=== PATIENT | male | born 1975 | race Two or more races ===

== ENCOUNTER 2022-01-07 22:19 | Inpatient (IN) | payer SELFPAY ==
[~2022-01-07] VITALS: Ht 167.6 cm; Wt 109.0 kg
[~2022-01-07 22:19] MED LIST: CITA40TA6 PO; FOLI1TAB16 PO; GLIM4TAB8 PO; LISI5TAB15 PO; METF-658 PO; SIMV40TA18 PO; SULF1TAB24 PO; TRAZ-123 PO
[2022-01-07] MEDS ORDERED: ONDANSETRON PF 4 MG/2 ML VIAL. IVP ONE (22:45)
[2022-01-07] MEDS ORDERED: IV NORMAL SALINE 1000ML BAG 1,000 ML IV SCH (22:45)
--- NOTE | 2022-01-07 22:55 | RAD ---
XR CHEST 1V INDICATION: Dyspnea. COMPARISON STUDY: None. FINDINGS: Lungs: Low volume. Mild bilateral perihilar opacities. Pleura: No pleural effusion or pneumothorax. Heart and Mediastinum: The cardiomediastinal silhouette is normal. The great vessels of the thorax ar e normal. Bones and Soft Tissues: The bones and soft tissues are within normal limits. IMPRESSION: Low lung volume with mild perihilar opacities, probably subsegmental atelectasis although infection c ould have a similar appearance. Electronically signed by: Arturo Garibay MD (01/07/2022 10:52 PM) [facility]
[2022-01-07] MEDS ORDERED: MULTIVIT INFUSN,ADULT 4,VIT K 10 ML, THIAMINE INJ 100 MG, FOLIC ACID INJ 1 MG in IV NOR... IV SCH (23:00)
[2022-01-07] MEDS ORDERED: MULTIVIT INFUSN,ADULT 4,VIT K 10 ML, THIAMINE INJ 100 MG, FOLIC ACID INJ 1 MG in IV NOR... IV ONE (23:00)
[2022-01-07 23:09] LABS: BASO # 0.1 x10^3/uL (0.0-0.2); BASO % 1 % (0-3); EOS % 0 % (0-3); HEMATOCRIT 43.3 % (39.0-53.0); HEMOGLOBIN 15.1 g/dL (13.0-17.5); LYMPH # 1.9 x10^3/uL (1.0-4.8); LYMPH % 31 % (24-48); MEAN CORPUSCULAR HEMOGLOBIN 31 pg (25-35); MEAN CORPUSCULAR HGB CONC 35 g/dL (31-37); MEAN CORPUSCULAR VOLUME 88 fL (79-100); MONO # 0.5 x10^3/uL (0.0-1.1); MONO % 8 % (0-9); NEUT # 3.6 x10^3/uL (1.8-7.7); NEUT % 60 % (31-73); PLATELET COUNT 195 x10^3/uL (140-400); RED BLOOD COUNT 4.94 x10^6/uL (4.30-5.70)
--- NOTE | 2022-01-07 23:10 | PHYS DOC ---
Past Medical History Past Medical History: Anxiety, Diabetes-Type II, High Cholesterol, Hypertension, Other Additional Past Medical Histor: ETOH ABUSE Past Surgical History: Other Additional Past Surgical Histo: Lower back disc surgery. Smoking Status: Current Every Day Smoker Alcohol Use: Heavy Drug Use: None Adult General Chief Complaint Chief Complaint: ALCOHOL INTOXICATION HPI HPI Patient is a 46 year old male who presents after drinking alcohol tonight. Patient is extremely agitated and states that he has been hallucinating. He has recently been through alcohol detox and fell off the wagon couple of days ago he says. He denies any recent trauma. Patient states he is very anxious and keeps seeing people that do not exist. He is requesting help at this time. He denies any fever, chest pain or abdominal pain. He does feel nauseated. Review of Systems Review of Systems Review of systems unobtainable secondary to patient's intoxication Current Medications Current Medications Current Medications Medications (Trade) Dose Ordered Sig/Vianney Start Time Stop Time Status Last Admin Dose Admin Lorazepam (Ativan Inj) 2 mg STK-MED ONCE 01/08/22 03:10 01/08/22 03:11 DC Multivitamins 10 ml/Thiamine HCl 100 mg/Folic Acid 1 mg/Sodium Chloride 1,011.2 ml @ 1,000 mls/ hr ONCE ONCE 01/07/22 23:00 01/08/22 00:00 DC 01/07/22 23:03 1,000 MLS/HR Ondansetron HCl (Zofran) 4 mg 1X ONCE 01/08/22 03:00 01/08/22 03:01 DC 01/08/22 02:55 4 MG Sodium Chloride 1,000 ml @ 1,000 mls/hr 1X ONCE 01/08/22 01:15 01/08/22 02:14 DC 01/08/22 01:39 1,000 MLS/HR Allergies Allergies Allergies Coded Allergies Type Severity Reaction Last Updated Verified hydrocodone Allergy Intermediate Rash. 05/30/15 Yes Physical Exam Physical Exam Constitutional: Well developed, well nourished male, nontoxic in appearance but quite anxious. HENT: Normocephalic, atraumatic, bilateral external ears normal, mucosa dry, nose normal. Eyes: EOMI, conjunctiva mildly injected bilaterally, no discharge. Neck: Normal range of motion, supple, no stridor, no meningeal signs. Cardiovascular: Tachycardic with a rate of 130 or so on initial arrival, regular rhythm Lungs & Thorax: Bilateral breath sounds clear to auscultation Abdomen: Soft, no tenderness or obvious masses Skin: Warm, dry, no erythema, no rash. Extremities: No tenderness, no cyanosis, no clubbing, ROM intact, no edema. Neurologic: Alert, normal motor function, normal sensory function, no focal deficits noted. Psychologic: Patient is agitated and anxious Current Patient Data Vital Signs Vital Signs Date Time Temp Pulse Resp B/P (MAP) Pulse Ox O2 Delivery O2 Flow Rate FiO2 01/07/22 23:58 106 22 149/85 (106) 98 Nasal Cannula 1.0 01/07/22 22:19 98.0 98.0 Lab Values Laboratory Tests Test 01/07/22 22:45 01/07/22 23:50 01/08/22 00:05 01/08/22 02:34 White Blood Count 6.0 x10^3/uL (4.0-11.0) Red Blood Count 4.94 x10^6/uL (4.30-5.70) Hemoglobin 15.1 g/dL (13.0-17.5) Hematocrit 43.3 % (39.0-53.0) Mean Corpuscular Volume 88 fL (79-100) Mean Corpuscular Hemoglobin 31 pg (25-35) Mean Corpuscular Hemoglobin Concent 35 g/dL (31-37) Red Cell Distribution Width 14.0 % (11.5-14.5) Platelet Count 195 x10^3/uL (140-400) Neutrophils (%) (Auto) 60 % (31-73) Lymphocytes (%) (Auto) 31 % (24-48) Monocytes (%) (Auto) 8 % (0-9) Eosinophils (%) (Auto) 0 % (0-3) Basophils (%) (Auto) 1 % (0-3) Neutrophils # (Auto) 3.6 x10^3/uL (1.8-7.7) Lymphocytes # (Auto) 1.9 x10^3/uL (1.0-4.8) Monocytes # (Auto) 0.5 x10^3/uL (0.0-1.1) Eosinophils # (Auto) 0.0 x10^3/uL (0.0-0.7) Basophils # (Auto) 0.1 x10^3/uL (0.0-0.2) Prothrombin Time 12.9 SEC (11.7-14.0) Prothrombin Time INR 1.0 (0.8-1.1) Activated Partial Thromboplast Time 29 SEC (24-38) Sodium Level 139 mmol/L (136-145) Potassium Level 2.9 mmol/L (3.5-5.1) *L Chloride Level 91 mmol/L (98-107) L Carbon Dioxide Level 27 mmol/L (21-32) Anion Gap 21 (6-14) H Blood Urea Nitrogen 11 mg/dL (8-26) Creatinine 0.9 mg/dL (0.7-1.3) Estimated GFR (Cockcroft-Gault) 91.3 BUN/Creatinine Ratio 12 (6-20) Glucose Level 147 mg/dL (70-99) H Lactic Acid Level 7.6 mmol/L (0.4-2.0) *H 3.7 mmol/L (0.4-2.0) H Calcium Level 8.1 mg/dL (8.5-10.1) L Magnesium Level 1.9 mg/dL (1.8-2.4) Total Bilirubin 1.2 mg/dL (0.2-1.0) H Aspartate Amino Transferase (AST) 69 U/L (15-37) H Alanine Aminotransferase (ALT) 46 U/L (16-63) Alkaline Phosphatase 76 U/L (46-116) Ammonia 15 mcmol/L (11-34) Creatine Kinase 445 U/L (39-308) H Troponin I High Sensitivity 10 ng/L (4-75) Total Protein 7.5 g/dL (6.4-8.2) Albumin 3.7 g/dL (3.4-5.0) Albumin/Globulin Ratio 1.0 (1.0-1.7) Lipase 148 U/L (73-393) Urine Opiates Screen Neg (NEG) Urine Methadone Screen Neg (NEG) Urine Barbiturates Neg (NEG) Urine Phencyclidine Screen Neg (NEG) Urine Amphetamine/Methamphetamine Neg (NEG) Urine Benzodiazepines Screen Neg (NEG) Urine Cocaine Screen Neg (NEG) Urine Cannabinoids Screen Neg (NEG) Ethyl Alcohol Level 361 mg/dL (0-10) H Urine Ethyl Alcohol Pos (NEG) Urine Collection Type Unknown Urine Color Yellow Urine Clarity Clear Urine pH 7.0 (<5.0-8.0) Urine Specific [place] 1.015 (1.000-1.030) Urine Protein Negative mg/dL (NEG-TRACE) Urine Glucose (UA) Negative mg/dL (NEG) Urine Ketones (Stick) >=80 mg/dL (NEG) Urine Blood Negative (NEG) Urine Nitrite Negative (NEG) Urine Bilirubin Negative (NEG) Urine Urobilinogen Dipstick 1.0 mg/dL (0.2 mg/dL) Urine Leukocyte Esterase Negative (NEG) Urine RBC 0 /HPF (0-2) Urine WBC 0 /HPF (0-4) Urine Squamous Epithelial Cells Occ /LPF Urine Amorphous Sediment Present /HPF Urine Bacteria 0 /HPF (0-FEW) Urine Hyaline Casts Moderate /HPF Urine Mucus Marked /LPF SARS-CoV-2 Antigen (Rapid) Negative (NEGATIVE) Laboratory Tests 01/07/22 22:45 Laboratory Tests 01/07/22 22:45 EKG EKG Twelve-lead EKG demonstrates sinus tachycardia with an overall rate of 127 bpm. TN and QRS intervals are within normal limits, QT corrected is borderline at [address] segment elevation or depression. There is a Q-wave in inferior lead III. Good R wave progression. Normal axis. [] Radiology/Procedures Radiology/Procedures []PATIENT: OTTO NICOLASCCOUNT: [id number]#: [id number] : 1975 LOCATION: ER AGE: 46 SEX: M EXAM STATUS: PRE ER ORD. PHYSICIAN: MIN TORRES MD REASON: s PROCEDURE: PORTABLE CHEST 1V XR CHEST 1V INDICATION: Dyspnea. COMPARISON STUDY: None. FINDINGS: Lungs: Low volume. Mild bilateral perihilar opacities. Pleura: No pleural effusion or pneumothorax. Heart and Mediastinum: The cardiomediastinal silhouette is normal. The great vessels of the thorax are normal. Bones and Soft Tissues: The bones and soft tissues are within normal limits. IMPRESSION: Low lung volume with mild perihilar opacities, probably subsegmental atelectasis although infection could have a similar appearance. Electronically signed by: Alex Garibay MD (01/07/2022 10:52 PM) [facility] DICTATED and SIGNED BY: ALEX GARIBAY MD DATE: 01/07/22 [id number] 0 Course & Med Decision Making Course & Med Decision Making Pertinent Labs and Imaging studies reviewed. (See chart for details) [] This 46-year-old male with acute alcohol intoxication. Alcohol abuse during 62. Patient was very anxious on arrival and agitated. His potassium was 3.9 his lactic acid was elevated to 7.6. He was given 2 L of normal saline and a banana bag. Repeat lactate was 3.7. I suspect his potassium is artificially low due to the metabolic acidosis. Hopefully this will improve with further hydration. Patient did require milligram of Ativan and some Zofran. We will keep him in the hospital for a longer period of observation and repeat lactate, he is in stable though somewhat guarded condition currently. Dragon Disclaimer Dragon Disclaimer This electronic medical record was generated, in whole or in part, using a voice recognition dictation system. Departure Departure Impression: Primary Impression: Alcohol intoxication Additional Impression: Lactic acidosis Disposition: ADMITTED INPATIENT Condition: GUARDED Referrals: NO PCP (PCP) Problem Qualifiers MIN TORRES MD Jan 07, 2022 23:10
[2022-01-07 23:20] LABS: PROTHROMBIN TIME PATIENT 12.9 SEC (11.7-14.0)
[2022-01-07 23:34] LABS: ALBUMIN 3.7 g/dL (3.4-5.0); CALCIUM 8.1 mg/dL (8.5-10.1); CREATININE 0.9 mg/dL (0.7-1.3); GFR 91.3; MAGNESIUM 1.9 mg/dL (1.8-2.4); TOTAL BILIRUBIN 1.2 mg/dL (0.2-1.0); TOTAL PROTEIN 7.5 g/dL (6.4-8.2)
[2022-01-07 23:43] LABS: POTASSIUM 2.9 mmol/L (3.5-5.1)
[2022-01-08 00:28] LABS: BARBITURATES NEG (NEG); BENZODIAZEPINES NEG (NEG); CANNABINOIDS NEG (NEG); COCAINE NEG (NEG); METHADONE NEG (NEG); OPIATES NEG (NEG); PHENCYCLIDINE NEG (NEG)
[2022-01-08 00:29] LABS: AMPHETAMINE/METHAMPHETAMINE NEG (NEG)
[2022-01-08 00:31] LABS: BILIRUBIN,URINE NEGATIVE (NEG); CLARITY,URINE CLEAR; COLOR,URINE YELLOW; NITRITE,URINE NEGATIVE (NEG); PROTEIN,URINE NEGATIVE (NEG-TRACE)
[2022-01-08 00:33] LABS: AMORPHOUS SEDIMENT,UR PRESENT /HPF; BACTERIA,URINE 0 /HPF (0-FEW); HYALINE CASTS, URINE MODERATE /HPF; RBC,URINE 0 /HPF (0-2); WBC,URINE 0 /HPF (0-4)
[2022-01-08] MEDS ORDERED: IV NORMAL SALINE 1000ML BAG 1,000 ML IV ONE (01:15)
[2022-01-08] MEDS ORDERED: ONDANSETRON PF 4 MG/2 ML VIAL. ONE (02:51)
[2022-01-08] MEDS ORDERED: ONDANSETRON PF 4 MG/2 ML VIAL. IVP ONE (03:00)
[2022-01-08] MEDS ORDERED: ONDANSETRON PF 4 MG/2 ML VIAL. IVP PRN (03:45)
[2022-01-08] MEDS ORDERED: POTASSIUM CHLORIDE 20 MEQ TABLET.ER. PO ONE ×2 (04:45→08:00)
[2022-01-08 05:26] VITALS: BP 142/92
[2022-01-08] MEDS ORDERED: diphenhydrAMINE 50 MG/ML VIAL IVP PRN (05:45)
[2022-01-08] MEDS ORDERED: HALOPERIDOL LACTATE 5 MG/ML VIAL. IVP PRN (05:45)
[2022-01-08 07:00] VITALS: BP 137/90
--- NOTE | 2022-01-08 08:04 | PDOC1 ---
History and Physical Date of Admission Date of Admission DATE: 01/08/22 TIME: 08:00 Identification/Chief Complaint Chief Complaint Hallucinations, intoxication Source Source: Patient History of Present Illness History of Present Illness Mr Funez is a 46 year old male w/ PMHx DM2, HLD, HTN, smoker, heavy ETOH use who presents after getting intoxicated at a hotel. He notes on 01/04/2022 he left [facility] because he and friends snuck beer in and purportedly was asked to leave. He then went to [facility] and has been on a "khan" and drank 6 pints of vodka and began hallucinating came to the ED for help. Patient is extremely agitated and states that he has been hallucinating and it trying to make himself vomit. He denies any fever, chest pain or abdominal pain. He does feel nauseated. Patient evaluated on 3 separate occasions was very intoxicated and hallucinating on the first 2. More alert on his third evaluation. He notes he had been in [facility] for 90 days and had actually gotten a plan of having a job when he notes a friend snuck in some beer and he relapsed. He notes he had COVID-19 in 2020 and has since had 2 mRNA vaccines and booster WBC 6, Hb 15.1, platelets 195, INR 1, PTT 29, NA 139, K2.9, BUN 11, CR 0.9, glucose 147, calcium 8.1, magnesium 1.9, bilirubin 1.2, AST 69, ALT 46, alk phos 76, albumin 3.7, lipase 148, lactic acid 7.6, high-sensitivity troponin is 10 9, ammonia is 50, CK is 445, urinalysis with ketonuria but bland otherwise, urine drug screen positive for ethyl alcohol and ethanol level 2245 was 361 rapid COVID-19 negative. Chest radiograph with perihilar opacities but with low lung volumes otherwise no acute abnormalities EKG sinus tachycardia rate 127 bpm normal axis QTC [address] segment elevations or depressions, no TWI Admitted for further care Past Medical History Cardiovascular: HTN, Hyperlipidemia Endocrine: Diabetes Past Surgical History Past Surgical History: Other (Back surgery) Family History Family History: Diabetes, High Cholestrol, Hypertension Social History Smoke: 1 pack per day ALCOHOL: heavy Drugs: None Current Problem List Problem List Problems Medical Problems: (1) Alcohol intoxication Status: Acute (2) Lactic acidosis Status: Acute Current Medications Current Medications Current Medications Lorazepam (Ativan Inj) 1 mg 1X ONCE IV Last administered on 01/07/22at 22:57; Start 01/07/22 at 22:45; Stop 01/07/22 at 22:46; Status DC Ondansetron HCl (Zofran) 4 mg 1X ONCE IVP Last administered on 01/07/22at 22:56; Start 01/07/22 at 22:45; Stop 01/07/22 at 22:46; Status DC Multivitamins 10 ml/Thiamine HCl 100 mg/Folic Acid 1 mg/Sodium Chloride 1,011.2 ml @ 1,000 mls/ hr Q1H IV ; Start 01/07/22 at 23:00; Status Cancel Sodium Chloride 1,000 ml @ 1,000 mls/hr Q1H IV Last administered on 01/07/22at 22:51; Start 01/07/22 at 22:45; Stop 01/07/22 at 23:44; Status DC Multivitamins 10 ml/Thiamine HCl 100 mg/Folic Acid 1 mg/Sodium Chloride 1,011.2 ml @ 1,000 mls/ hr ONCE ONCE IV Last administered on 01/07/22at 23:03; Start 01/07/22 at 23:00; Stop 01/08/22 at 00:00; Status DC Sodium Chloride 1,000 ml @ 1,000 mls/hr 1X ONCE IV Last administered on at 01:39; Start 01/08/22 at 01:15; Stop 01/08/22 at 02:14; Status DC Ondansetron HCl (Zofran) 4 mg STK-MED ONCE .ROUTE ; Start 01/08/22 at 02:51; Stop 01/08/22 at 02:52; Status DC Ondansetron HCl (Zofran) 4 mg 1X ONCE IVP Last administered on 01/08/22at 02:55; Start 01/08/22 at 03:00; Stop 01/08/22 at 03:01; Status DC Lorazepam (Ativan Inj) 1 mg 1X ONCE IVP Last administered on 01/08/22at 03:13; Start 01/08/22 at 03:15; Stop 01/08/22 at 03:16; Status DC Lorazepam (Ativan Inj) 2 mg STK-MED ONCE .ROUTE ; Start 01/08/22 at 03:10; Stop 01/08/22 at 03:11; Status DC Ondansetron HCl (Zofran) 4 mg PRN Q8HRS PRN IVP NAUSEA/VOMITING; Start 01/08/22 at 03:45; Stop 01/09/22 at 03:44 Potassium Chloride (Klor-Con) 20 meq 1X ONCE PO Last administered on 01/08/22at 04:48; Start 01/08/22 at 04:45; Stop 01/08/22 at 04:46; Status DC Lorazepam (Ativan Inj) 2 mg PRN Q1HR PRN IV For CIWA 8-14 Last administered on 01/08/22at 05:52; Start 01/08/22 at 05:45 Lorazepam (Ativan Inj) 4 mg PRN Q1HR PRN IV For CIWA 15 or greater; Start 01/08/22 at 05:45 Haloperidol Lactate (Haldol Inj) 5 mg PRN Q4HRS PRN IVP Hallucinatns,Confusn,Delirium; Start 01/08/22 at 05:45 Diphenhydramine HCl (Benadryl) 25 mg PRN Q15MIN PRN IVP EPS symptoms 2'Haldol admin; Start 01/08/22 at 05:45 Multivitamins (Thera M Plus) 1 tab DAILY PO ; Start 01/08/22 at 09:00 Folic Acid (Folic Acid) 1 mg DAILY PO ; Start 01/08/22 at 09:00 Thiamine Mononitrate (Vitamin B-1) 100 mg DAILY PO ; Start 01/08/22 at 09:00 Active Scripts Active Bactrim Ds Tablet (Sulfamethoxazole/Trimethoprim) 1 Each Tablet 1 Tab PO BID Reported Metformin Hcl Er (Metformin Hcl) 500 Mg Tab.er.24h 500 Mg PO [id number] Folic Acid 1 Mg Tablet 1 Mg PO DAILY Glimepiride 4 Mg Tablet 4 Mg PO DAILY Citalopram Hbr (Citalopram Hydrobromide) 40 Mg Tablet 40 Mg PO DAILY Simvastatin 40 Mg Tablet 40 Mg PO DAILY Lisinopril 5 Mg Tablet 5 Mg PO DAILY Trazodone Hcl 100 Mg Tablet 100 Mg PO HS Allergies Allergies: Coded Allergies: hydrocodone (Verified Allergy, Intermediate, Rash., 05/30/15) ROS General: YES: Fatigue, Malaise; No: Chills, Night Sweats, Appetite, Other PSYCHOLOGICAL ROS: YES: Depression, Disorientation, Hallucinations; No: Anxiety, Behavioral Disorder, Concentration difficultie, Decreased libido, Hostility, Irritablity, Memory difficulties, Mood Swings, Obsessive thoughts, Physical abuse, Sexual abuse, Sleep disturbances, Suicidal ideation, Other Eyes: No Blurry vision, No Decreased vision, No Double vision, No Dry eyes, No Excessive tearing, No Eye Pain, No Itchy Eyes, No Loss of vision, No Photophobia, No Scotomata, No Uses contacts, No Uses glasses, No Other HEENT: No: Heacaches, Visual Changes, Hearing change, Nasal congestion, Nasal discharge, Oral lesions, Sinus pain, Sore Throat, Epistaxis, Sneezing, Snoring, Tinnitus, Vertigo, Vocal changes, Other ALLERGY AND IMMUNOLOGY: No: Hives, Insect Bite Sensitivity, Itchy/Watery Eyes, Nasal Congestion, Post Nasal Drip, Seasonal Allergies, Other Hematological and Lymphatic: No: Bleeding Problems, Blood Clots, Blood Transfusions, Brusing, Night Sweats, Pallor, Swollen Lymph Nodes, Other ENDOCRINE: No: Breast Changes, Galactorrhea, Hair Pattern Changes, Hot Flashes, Malaise/lethargy, Mood Swings, Palpitations, Polydipsia/polyuria, Skin Changes, Temperature Intolerance, Unexpected Weight Changes, Other Breast: No New/Changing Breast Lumps, No Nipple changes, No Nipple discharge, No Other Respiratory: No: Cough, Hemoptysis, Orthopnea, Pleuritic Pain, Shortness of breath, SOB with excertion, Sputum Changes, Stridor, Tachypnea, Wheezing, Other Cardiovascular: No Chest Pain, No Palpitations, No Orthopnea, No Paroxysmal Noc. Dyspnea, No Edema, No Lt Headedness, No Other Gastrointestinal: Yes Nausea; No Vomiting, No Abdominal Pain, No Diarrhea, No Constipation, No Melena, No Hematochezia, No Other Genitourinary: No Dysuria, No Frequency, No Incontinence, No Hematuria, No Retention, No Discharge, No Urgency, No Pain, No Flank Pain, No Other, No , No , No , No , No , No , No Musculoskeletal: No Gait Disturbance, No Joint Pain, No Joint Stiffness, No Cynthia int Swelling, No Muscle Pain, No Muscular Weakness, No Pain In:, No Swelling In:, No Other Neurological: No Behavorial Changes, No Bowel/Bladder ControlChng, No Confusion, No Dizziness, No Gait Disturbance, No Headaches, No Impaired C oord/balance, No Memory Loss, No Numbness/Tingling, No Seizures, No Speech Problems, No Tremors, No Visual Changes, No Weakness, No Other Skin: No Dry Skin, No Eczema, No Hair Changes, No Lumps, No Mole Changes, No Mottling, No Nail Changes, No Pruritus, No Rash, No Skin Lesion Changes, No Other, No Acne Physical Exam General: Alert, Cooperative, mild distress HEENT: Atraumatic, PERRLA, EOMI, Mucous membr. moist/pink Lungs: Clear to auscultation, Normal air movement Heart: S1S2, RRR, no thrills, no rubs, no gallops, no murmurs Abdomen: Normal bowel sounds, Soft, No tenderness, No hepatosplenomegaly, No masses Rectal Exam: not examined Extremities: No clubbing, No cyanosis, No edema, Normal pulses, No tenderness/swelling Skin: No rashes, No breakdown, No significant lesion Neuro: Normal gait, Normal speech, Strength at 5/5 X4 ext, Normal tone, Sensation intact, Cranial nerves 3-12 NL, Reflexes 2+ Psych/Mental Status: Mental status NL, Mood NL Vitals Vitals Vital Signs Date Time Temp Pulse Resp B/P (MAP) Pulse Ox O2 Delivery O2 Flow Rate FiO2 01/08/22 07:38 Nasal Cannula 2.0 01/08/22 05:26 97.4 109 20 142/92 (109) 97 97.4 Labs Labs Laboratory Tests Test 01/07/22 22:45 01/07/22 23:50 01/08/22 00:05 01/08/22 02:34 White Blood Count 6.0 x10^3/uL (4.0-11.0) Red Blood Count 4.94 x10^6/uL (4.30-5.70) Hemoglobin 15.1 g/dL (13.0-17.5) Hematocrit 43.3 % (39.0-53.0) Mean Corpuscular Volume 88 fL (79-100) Mean Corpuscular Hemoglobin 31 pg (25-35) Mean Corpuscular Hemoglobin Concent 35 g/dL (31-37) Red Cell Distribution Width 14.0 % (11.5-14.5) Platelet Count 195 x10^3/uL (140-400) Neutrophils (%) (Auto) 60 % (31-73) Lymphocytes (%) (Auto) 31 % (24-48) Monocytes (%) (Auto) 8 % (0-9) Eosinophils (%) (Auto) 0 % (0-3) Basophils (%) (Auto) 1 % (0-3) Neutrophils # (Auto) 3.6 x10^3/uL (1.8-7.7) Lymphocytes # (Auto) 1.9 x10^3/uL (1.0-4.8) Monocytes # (Auto) 0.5 x10^3/uL (0.0-1.1) Eosinophils # (Auto) 0.0 x10^3/uL (0.0-0.7) Basophils # (Auto) 0.1 x10^3/uL (0.0-0.2) Prothrombin Time 12.9 SEC (11.7-14.0) Prothromb Time International Ratio 1.0 (0.8-1.1) Activated Partial Thromboplast Time 29 SEC (24-38) Sodium Level 139 mmol/L (136-145) Potassium Level 2.9 mmol/L (3.5-5.1) Chloride Level 91 mmol/L (98-107) Carbon Dioxide Level 27 mmol/L (21-32) Anion Gap 21 (6-14) Blood Urea Nitrogen 11 mg/dL (8-26) Creatinine 0.9 mg/dL (0.7-1.3) Estimated GFR (Cockcroft-Gault) 91.3 BUN/Creatinine Ratio 12 (6-20) Glucose Level 147 mg/dL (70-99) Lactic Acid Level 7.6 mmol/L (0.4-2.0) 3.7 mmol/L (0.4-2.0) Calcium Level 8.1 mg/dL (8.5-10.1) Magnesium Level 1.9 mg/dL (1.8-2.4) Total Bilirubin 1.2 mg/dL (0.2-1.0) Aspartate Amino Transf (AST/SGOT) 69 U/L (15-37) Alanine Aminotransferase (ALT/SGPT) 46 U/L (16-63) Alkaline Phosphatase 76 U/L (46-116) Ammonia 15 mcmol/L (11-34) Creatine Kinase 445 U/L (39-308) Troponin I High Sensitivity 10 ng/L (4-75) Total Protein 7.5 g/dL (6.4-8.2) Albumin 3.7 g/dL (3.4-5.0) Albumin/Globulin Ratio 1.0 (1.0-1.7) Lipase 148 U/L (73-393) Urine Opiates Screen Neg (NEG) Urine Methadone Screen Neg (NEG) Urine Barbiturates Neg (NEG) Urine Phencyclidine Screen Neg (NEG) Urine Amphetamine/Methamphetamine Neg (NEG) Urine Benzodiazepines Screen Neg (NEG) Urine Cocaine Screen Neg (NEG) Urine Cannabinoids Screen Neg (NEG) Ethyl Alcohol Level 361 mg/dL (0-10) Urine Ethyl Alcohol Pos (NEG) Urine Collection Type Unknown Urine Color Yellow Urine Clarity Clear Urine pH 7.0 (<5.0-8.0) Urine Specific [place] 1.015 (1.000-1.030) Urine Protein Negative mg/dL (NEG-TRACE) Urine Glucose (UA) Negative mg/dL (NEG) Urine Ketones (Stick) >=80 mg/dL (NEG) Urine Blood Negative (NEG) Urine Nitrite Negative (NEG) Urine Bilirubin Negative (NEG) Urine Urobilinogen Dipstick 1.0 mg/dL (0.2 mg/dL) Urine Leukocyte Esterase Negative (NEG) Urine RBC 0 /HPF (0-2) Urine WBC 0 /HPF (0-4) Urine Squamous Epithelial Cells Occ /LPF Urine Amorphous Sediment Present /HPF Urine Bacteria 0 /HPF (0-FEW) Urine Hyaline Casts Moderate /HPF Urine Mucus Marked /LPF SARS-CoV-2 Antigen (Rapid) Negative (NEGATIVE) Laboratory Tests Test 01/07/22 22:45 01/07/22 23:50 01/08/22 00:05 01/08/22 02:34 White Blood Count 6.0 x10^3/uL (4.0-11.0) Red Blood Count 4.94 x10^6/uL (4.30-5.70) Hemoglobin 15.1 g/dL (13.0-17.5) Hematocrit 43.3 % (39.0-53.0) Mean Corpuscular Volume 88 fL (79-100) Mean Corpuscular Hemoglobin 31 pg (25-35) Mean Corpuscular Hemoglobin Concent 35 g/dL (31-37) Red Cell Distribution Width 14.0 % (11.5-14.5) Platelet Count 195 x10^3/uL (140-400) Neutrophils (%) (Auto) 60 % (31-73) Lymphocytes (%) (Auto) 31 % (24-48) Monocytes (%) (Auto) 8 % (0-9) Eosinophils (%) (Auto) 0 % (0-3) Basophils (%) (Auto) 1 % (0-3) Neutrophils # (Auto) 3.6 x10^3/uL (1.8-7.7) Lymphocytes # (Auto) 1.9 x10^3/uL (1.0-4.8) Monocytes # (Auto) 0.5 x10^3/uL (0.0-1.1) Eosinophils # (Auto) 0.0 x10^3/uL (0.0-0.7) Basophils # (Auto) 0.1 x10^3/uL (0.0-0.2) Prothrombin Time 12.9 SEC (11.7-14.0) Prothromb Time International Ratio 1.0 (0.8-1.1) Activated Partial Thromboplast Time 29 SEC (24-38) Sodium Level 139 mmol/L (136-145) Potassium Level 2.9 mmol/L (3.5-5.1) Chloride Level 91 mmol/L (98-107) Carbon Dioxide Level 27 mmol/L (21-32) Anion Gap 21 (6-14) Blood Urea Nitrogen 11 mg/dL (8-26) Creatinine 0.9 mg/dL (0.7-1.3) Estimated GFR (Cockcroft-Gault) 91.3 BUN/Creatinine Ratio 12 (6-20) Glucose Level 147 mg/dL (70-99) Lactic Acid Level 7.6 mmol/L (0.4-2.0) 3.7 mmol/L (0.4-2.0) Calcium Level 8.1 mg/dL (8.5-10.1) Magnesium Level 1.9 mg/dL (1.8-2.4) Total Bilirubin 1.2 mg/dL (0.2-1.0) Aspartate Amino Transf (AST/SGOT) 69 U/L (15-37) Alanine Aminotransferase (ALT/SGPT) 46 U/L (16-63) Alkaline Phosphatase 76 U/L (46-116) Ammonia 15 mcmol/L (11-34) Creatine Kinase 445 U/L (39-308) Troponin I High Sensitivity 10 ng/L (4-75) Total Protein 7.5 g/dL (6.4-8.2) Albumin 3.7 g/dL (3.4-5.0) Albumin/Globulin Ratio 1.0 (1.0-1.7) Lipase 148 U/L (73-393) Urine Opiates Screen Neg (NEG) Urine Methadone Screen Neg (NEG) Urine Barbiturates Neg (NEG) Urine Phencyclidine Screen Neg (NEG) Urine Amphetamine/Methamphetamine Neg (NEG) Urine Benzodiazepines Screen Neg (NEG) Urine Cocaine Screen Neg (NEG) Urine Cannabinoids Screen Neg (NEG) Ethyl Alcohol Level 361 mg/dL (0-10) Urine Ethyl Alcohol Pos (NEG) Urine Collection Type Unknown Urine Color Yellow Urine Clarity Clear Urine pH 7.0 (<5.0-8.0) Urine Specific [place] 1.015 (1.000-1.030) Urine Protein Negative mg/dL (NEG-TRACE) Urine Glucose (UA) Negative mg/dL (NEG) Urine Ketones (Stick) >=80 mg/dL (NEG) Urine Blood Negative (NEG) Urine Nitrite Negative (NEG) Urine Bilirubin Negative (NEG) Urine Urobilinogen Dipstick 1.0 mg/dL (0.2 mg/dL) Urine Leukocyte Esterase Negative (NEG) Urine RBC 0 /HPF (0-2) Urine WBC 0 /HPF (0-4) Urine Squamous Epithelial Cells Occ /LPF Urine Amorphous Sediment Present /HPF Urine Bacteria 0 /HPF (0-FEW) Urine Hyaline Casts Moderate /HPF Urine Mucus Marked /LPF SARS-CoV-2 Antigen (Rapid) Negative (NEGATIVE) Images Images Chest radiograph: Lungs: Low volume. Mild bilateral perihilar opacities. Pleura: No pleural effusion or pneumothorax. Heart and Mediastinum: The cardiomediastinal silhouette is normal. The great vessels of the thorax are normal. Bones and Soft Tissues: The bones and soft tissues are within normal limits. IMPRESSION: Low lung volume with mild perihilar opacities, probably subsegmental atelectasis although infection could have a similar appearance. VTE Prophylaxis Ordered VTE Prophylaxis Devices: No VTE Pharmacological Prophylaxi: Yes Assessment/Plan Assessment/Plan Acute alcohol intoxication with delerium -not safe to discharge due to his level of intoxication Alcohol use disorder -with history of withdrawal. He just recently relapsed and had 90 days sober. Will have psychiatric assessment team nurse liaison consultation to assist in getting back into rehabilitation. CIWA scale DM2 - sliding scale insulin HLD - statin HTN - cont home meds Smoker - offered nicotine patch. Counseled on cessation Hypokalemia - likely GI losses from alcohol abuse, dehydration Lactic acidosis - likely due to taking metformin with alcohol while not eating. Will monitor downward trend Transaminitis - likely alcohol related, will monitor FEN - regular diet PPX - ambulatory FULL CODE Dispo - inpatient Justifications for Admission Other Justification PRINCE CERON MD Jan 08, 2022 08:04
[2022-01-08] MEDS ORDERED: IV DEXTROSE 5% 250 ML BAG. IV PRN (08:15)
[2022-01-08] MEDS ORDERED: DEXTROSE 50% 25 GM / 50ML DISP.SYRIN. IV PRN (08:15)
[2022-01-08] MEDS: INSULIN LISPRO 300 UNITS/3 ML VIAL. SQ SCH ×3 (08:15→17:00)
[2022-01-08] MEDS: MULTIVITAMIN with MINERAL TABLET. PO SCH (09:37)
[2022-01-08] MEDS: FOLIC ACID 1 MG TABLET. PO SCH (09:37)
[2022-01-08] MEDS: THIAMINE 100 MG TABLET. PO SCH (09:38)
[2022-01-08 11:00] VITALS: BP 154/89
--- NOTE | 2022-01-08 11:53 | EKG ---
[facility] [address] [place] [address] Test Date: 2022-01-07 Test Time: 22:36:22 Pat Name: HANNA NICOLAS Department: Room: 2 Gender: M Senior Research Consultant: : [id number] Requested By: MIN TORRES Order Number: [id number] Reading MD: Kt Quintana Measurements Intervals [place] Rate: 127 P: 48 MA: 110 QRS: 31 QRSD: 76 T: 36 QT: 326 QTc: 479 Interpretive Statements SINUS TACHYCARDIA Electronically Signed On 01-10-2022 14:03:16 HISTOTECHNOLOGIST SUPERVISOR by Kt Quintana
[2022-01-08 15:00] VITALS: BP 150/90
--- NOTE | 2022-01-08 16:38 | NUR ---
SW following. Discussed with RN, pt from home - recently been in alcohol treatment. PAT consult for ETOH. Med Assist following for self pay status. SW will continue to follow.
[2022-01-08 19:40] VITALS: BP 148/89
[2022-01-08 23:35] VITALS: BP 163/95
[2022-01-09 03:28] VITALS: BP 148/87
[2022-01-09 07:00] VITALS: BP 154/106
[2022-01-09 07:27] LABS: CALCIUM 8.1 mg/dL (8.5-10.1); CREATININE 0.7 mg/dL (0.7-1.3)
[2022-01-09 07:34] LABS: POTASSIUM 2.9 mmol/L (3.5-5.1)
[2022-01-09] MEDS: INSULIN LISPRO 300 UNITS/3 ML VIAL. SQ SCH ×3 (08:00→17:00)
[2022-01-09] MEDS ORDERED: POTASSIUM CHLORIDE 20 MEQ TABLET.ER. PO ONE ×2 (08:55→11:00)
[2022-01-09] MEDS: KETOROLAC 30 MG/ML VIAL. IVP PRN ×2 (09:09→19:53)
[2022-01-09] MEDS: ONDANSETRON PF 4 MG/2 ML VIAL. IVP PRN ×2 (09:09→19:53)
[2022-01-09] MEDS: MULTIVITAMIN with MINERAL TABLET. PO SCH (09:10)
[2022-01-09] MEDS: FOLIC ACID 1 MG TABLET. PO SCH (09:10)
[2022-01-09] MEDS: THIAMINE 100 MG TABLET. PO SCH (09:10)
--- NOTE | 2022-01-09 09:18 | PDOC ---
[employer] PROGRESS NOTE Date of Service DOS: DATE: 01/09/22 TIME: 08:59 Chief Complaint Chief Complaint Acute alcohol intoxication with delerium - initially not safe to discharge due to his level of intoxication. Sober now Alcohol use disorder - with history of withdrawal. He just recently relapsed and had 90 days sober. Will have psychiatric assessment team nurse liaison consultation to assist in getting back into rehabilitation. CIWA scale Headache - IV toradol Prn DM2 - sliding scale insulin HLD - statin HTN - cont home meds Smoker - offered nicotine patch. Counseled on cessation Hypokalemia - likely GI losses from alcohol abuse, dehydration Lactic acidosis - likely due to taking metformin with alcohol while not eating. Will monitor downward trend Transaminitis - likely alcohol related, will monitor FEN - regular diet PPX - ambulatory FULL CODE Dispo - inpatient History of Present Illness History of Present Illness Mr Funez is a 46 year old male w/ PMHx DM2, HLD, HTN, smoker, heavy ETOH use who presents after getting intoxicated at a hotel. He notes on 01/04/2022 he left [facility] because he and friends snuck beer in and purportedly was asked to leave. He then went to [facility] [employer] and has been on a "khan" and drank 6 pints of vodka and began hallucinating came to the ED for help. Patient is extremely agitated and states that he has been hallucinating and it trying to make himself vomit. He denies any fever, chest pain or abdominal pain. He does feel nauseated. Patient evaluated on 3 separate occasions was very intoxicated and hallucinating on the first 2. More alert on his third evaluation. He notes he had been in [employer] for 90 days and had actually gotten a plan of having a job when he notes a friend snuck in some beer and he relapsed. He notes he had COVID-19 in 2020 and has since had 2 mRNA vaccines and booster WBC 6, Hb 15.1, platelets 195, INR 1, PTT 29, NA 139, K2.9, BUN 11, CR 0.9, glucose 147, calcium 8.1, magnesium 1.9, bilirubin 1.2, AST 69, ALT 46, alk phos 76, albumin 3.7, lipase 148, lactic acid 7.6, high-sensitivity troponin is 10 9, ammonia is 50, CK is 445, urinalysis with ketonuria but bland otherwise, urine drug screen positive for ethyl alcohol and ethanol level 2245 was 361 rapid COVID-19 negative. Chest radiograph with perihilar opacities but with low lung volumes otherwise no acute abnormalities EKG sinus tachycardia rate 127 bpm normal axis QTC [address] segment elevations or depressions, no TWI Admitted for further care 01/09: Afebrile. K2.9. Having headache and some nausea today. Lactic acid trended downward. Still interested in alcohol rehab. Feeling weak overall. Vitals/I&O Vitals/I&O: Vital Signs Date Time Temp Pulse Resp B/P (MAP) Pulse Ox O2 Delivery O2 Flow Rate FiO2 01/09/22 07:00 97.7 129 20 154/106 (122) 96 Room Air 97.7 01/08/22 15:00 2.0 I & O 01/08/22 01/08/22 01/09/22 15:00 23:00 07:00 Intake Total 480 ml 360 ml 240 ml Output Total 225 ml 900 ml 500 ml Balance 255 ml -540 ml -260 ml Physical Exam General: Alert, Cooperative, mild distress Abdomen: Normal bowel sounds, Soft, No tenderness, No hepatosplenomegaly, No masses Extremities: No clubbing, No cyanosis, No edema, Normal pulses, No tenderness/swelling Skin: No rashes, No breakdown, No significant lesion Labs Labs: Laboratory Tests Test 01/08/22 11:00 01/08/22 11:42 01/08/22 17:08 01/08/22 20:03 Lactic Acid Level 2.7 mmol/L (0.4-2.0) Glucose (Fingerstick) 142 mg/dL (70-99) 152 mg/dL (70-99) 141 mg/dL (70-99) Test 01/09/22 05:40 01/09/22 07:24 Sodium Level 141 mmol/L (136-145) Potassium Level 2.9 mmol/L (3.5-5.1) Chloride Level 99 mmol/L (98-107) Carbon Dioxide Level 30 mmol/L (21-32) Anion Gap 12 (6-14) Blood Urea Nitrogen 5 mg/dL (8-26) Creatinine 0.7 mg/dL (0.7-1.3) Estimated GFR (Cockcroft-Gault) 122.0 Glucose Level 129 mg/dL (70-99) Calcium Level 8.1 mg/dL (8.5-10.1) Glucose (Fingerstick) 125 mg/dL (70-99) Assessment and Plan Assessmemt and Plan Problems Medical Problems: (1) Alcohol intoxication Status: Acute (2) Lactic acidosis Status: Acute Comment Review of Relevant I have reviewed the following items tommie (where applicable) has been applied. Medications: Current Medications Medications (Trade) Dose Ordered Sig/Vianney Route PRN Reason Start Time Stop Time Status Last Admin Dose Admin Multivitamins (Thera M Plus) 1 tab DAILY PO 01/08/22 09:00 01/08/22 09:37 Folic Acid (Folic Acid) 1 mg DAILY PO 01/08/22 09:00 01/08/22 09:37 Thiamine Mononitrate (Vitamin B-1) 100 mg DAILY PO 01/08/22 09:00 01/08/22 09:38 Justifications for Admission Other Justification PRINCE CERON MD Jan 09, 2022 09:18
[2022-01-09 10:54] VITALS: BP 153/98
[2022-01-09 15:00] VITALS: BP 147/101
[2022-01-09] MEDS ORDERED: cloNIDine HCL 0.1 MG TABLET PO PRN (17:15)
[2022-01-09 19:00] VITALS: BP 157/98
[2022-01-09] MEDS: GABAPENTIN 300 MG CAPSULE. PO SCH (19:53)
[2022-01-09 22:43] VITALS: BP 159/94
[2022-01-10] MEDS: KETOROLAC 30 MG/ML VIAL. IVP PRN (04:52)
[2022-01-10] MEDS: ONDANSETRON PF 4 MG/2 ML VIAL. IVP PRN (04:52)
[2022-01-10 07:00] VITALS: BP 128/77
[2022-01-10 07:19] LABS: ALBUMIN 3.1 g/dL (3.4-5.0); CREATININE 0.8 mg/dL (0.7-1.3); GFR 104.5; MAGNESIUM 1.9 mg/dL (1.8-2.4); PHOSPHORUS 1.7 mg/dL (2.6-4.7); POTASSIUM 3.1 mmol/L (3.5-5.1)
[2022-01-10] MEDS: FOLIC ACID 1 MG TABLET. PO SCH (08:16)
[2022-01-10] MEDS: MULTIVITAMIN with MINERAL TABLET. PO SCH (08:17)
[2022-01-10] MEDS: THIAMINE 100 MG TABLET. PO SCH (08:17)
[2022-01-10] MEDS: INSULIN LISPRO 300 UNITS/3 ML VIAL. SQ SCH ×3 (08:19→17:00)
[2022-01-10 11:00] VITALS: BP 142/98
--- NOTE | 2022-01-10 11:36 | PDOC ---
[facility] PROGRESS NOTE Date of Service DOS: DATE: 01/10/22 TIME: 11:35 Chief Complaint Chief Complaint Acute alcohol intoxication with delerium - initially not safe to discharge due to his level of intoxication. Sober now Alcohol use disorder - with history of withdrawal. He just recently relapsed and had 90 days sober. Will have psychiatric assessment team nurse liaison consultation to assist in getting back into rehabilitation. CIWA scale Headache - IV toradol Prn DM2 - sliding scale insulin HLD - statin HTN - cont home meds Smoker - offered nicotine patch. Counseled on cessation Hypokalemia - likely GI losses from alcohol abuse, dehydration Lactic acidosis - likely due to taking metformin with alcohol while not eating. Will monitor downward trend Transaminitis - likely alcohol related, will monitor FEN - regular diet PPX - ambulatory FULL CODE Dispo - inpatient History of Present Illness History of Present Illness Mr Funez is a 46 year old male w/ PMHx DM2, HLD, HTN, smoker, heavy ETOH use who presents after getting intoxicated at a hotel. He notes on 01/04/2022 he left [facility] because he and friends snuck beer in and purportedly was asked to leave. He then went to [facility] and has been on a "khan" and drank 6 pints of vodka and began hallucinating came to the ED for help. Patient is extremely agitated and states that he has been hallucinating and it trying to make himself vomit. He denies any fever, chest pain or abdominal pain. He does feel nauseated. Patient evaluated on 3 separate occasions was very intoxicated and hallucinating on the first 2. More alert on his third evaluation. He notes he had been in [place] for 90 days and had actually gotten a plan of having a job when he notes a friend snuck in some beer and he relapsed. He notes he had COVID-19 in 2020 and has since had 2 mRNA vaccines and booster WBC 6, Hb 15.1, platelets 195, INR 1, PTT 29, NA 139, K2.9, BUN 11, CR 0.9, glucose 147, calcium 8.1, magnesium 1.9, bilirubin 1.2, AST 69, ALT 46, alk phos 76, albumin 3.7, lipase 148, lactic acid 7.6, high-sensitivity troponin is 10 9, ammonia is 50, CK is 445, urinalysis with ketonuria but bland otherwise, urine drug screen positive for ethyl alcohol and ethanol level 2245 was 361 rapid COVID-19 negative. Chest radiograph with perihilar opacities but with low lung volumes otherwise no acute abnormalities EKG sinus tachycardia rate 127 bpm normal axis QTC [address] segment elevations or depressions, no TWI Admitted for further care 01/09: Afebrile. K2.9. Having headache and some nausea today. Lactic acid trended downward. Still interested in alcohol rehab. Feeling weak overall. 01/10: K3.1, Phos 1.7. Glucose 218. Asking for regular diet. Nausea improved. Notes he does not feel safe to go home or to hotel because he knows he will start drinking again asking for alcohol rehab Vitals/I&O Vitals/I&O: Vital Signs Date Time Temp Pulse Resp B/P (MAP) Pulse Ox O2 Delivery O2 Flow Rate FiO2 01/10/22 08:05 Room Air 2.0 01/10/22 07:00 98.7 138 19 128/77 (94) 100 98.7 I & O 01/09/22 01/09/22 01/10/22 15:00 23:00 07:00 Intake Total 500 ml Output Total 400 ml Balance 100 ml Physical Exam General: Alert, Cooperative, mild distress Abdomen: Normal bowel sounds, Soft, No tenderness, No hepatosplenomegaly, No masses Extremities: No clubbing, No cyanosis, No edema, Normal pulses, No tenderness/swelling Skin: No rashes, No breakdown, No significant lesion Labs Labs: Laboratory Tests Test 01/09/22 11:55 01/09/22 17:00 01/09/22 18:56 01/10/22 06:10 Glucose (Fingerstick) 199 mg/dL (70-99) 125 mg/dL (70-99) 209 mg/dL (70-99) Sodium Level 139 mmol/L (136-145) Potassium Level 3.1 mmol/L (3.5-5.1) Chloride Level 102 mmol/L (98-107) Carbon Dioxide Level 30 mmol/L (21-32) Anion Gap 7 (6-14) Blood Urea Nitrogen 8 mg/dL (8-26) Creatinine 0.8 mg/dL (0.7-1.3) Estimated GFR (Cockcroft-Gault) 104.5 Glucose Level 274 mg/dL (70-99) Calcium Level 8.0 mg/dL (8.5-10.1) Phosphorus Level 1.7 mg/dL (2.6-4.7) Magnesium Level 1.9 mg/dL (1.8-2.4) Albumin 3.1 g/dL (3.4-5.0) Test 01/10/22 07:25 Glucose (Fingerstick) 218 mg/dL (70-99) Assessment and Plan Assessmemt and Plan Problems Medical Problems: (1) Alcohol intoxication Status: Acute (2) Lactic acidosis Status: Acute Comment Review of Relevant I have reviewed the following items tommie (where applicable) has been applied. Medications: Current Medications Medications (Trade) Dose Ordered Sig/Vianney Route PRN Reason Start Time Stop Time Status Last Admin Dose Admin Gabapentin (Neurontin) 300 mg QHS PO 01/09/22 21:00 01/09/22 19:53 Lorazepam (Ativan) 1 mg PRN Q1HR PRN PO For CIWA 8-14 01/09/22 17:15 01/10/22 08:37 Lorazepam (Ativan) 2 mg PRN Q1HR PRN PO For CIWA 15 or greater 01/09/22 17:15 01/09/22 19:53 Justifications for Admission Other Justification PRINCE CERON MD Jan 10, 2022 11:35
[2022-01-10] MEDS ORDERED: POTASSIUM CHLORIDE 20 MEQ TABLET.ER. PO ONE ×2 (12:00→14:00)
[2022-01-10] MEDS: POTASSIUM & SODIUM PHOSPHATES PACKET. PO SCH (12:07)
[2022-01-10] MEDS: metFORMIN 500 MG TABLET PO SCH ×2 (12:07→16:33)
[2022-01-10 15:00] VITALS: BP 141/78
[2022-01-10] MEDS: ACETAMINOPHEN 325 MG TABLET. PO PRN (17:01)
[2022-01-10 19:00] VITALS: BP 124/81
[2022-01-10] MEDS: GABAPENTIN 300 MG CAPSULE. PO SCH (21:21)
[2022-01-10 22:42] VITALS: BP 129/84
[2022-01-11 03:07] VITALS: BP 134/89
[2022-01-11] MEDS: ACETAMINOPHEN 325 MG TABLET. PO PRN ×2 (05:10→08:37)
[2022-01-11 07:30] VITALS: BP 144/95
[2022-01-11] MEDS: POTASSIUM & SODIUM PHOSPHATES PACKET. PO SCH (08:37)
[2022-01-11] MEDS: THIAMINE 100 MG TABLET. PO SCH (08:37)
[2022-01-11] MEDS: MULTIVITAMIN with MINERAL TABLET. PO SCH (08:37)
[2022-01-11] MEDS: metFORMIN 500 MG TABLET PO SCH (08:37)
[2022-01-11] MEDS: FOLIC ACID 1 MG TABLET. PO SCH (08:37)
[2022-01-11] MEDS: INSULIN LISPRO 300 UNITS/3 ML VIAL. SQ SCH ×2 (08:40→12:00)
[2022-01-11 11:00] VITALS: BP 140/91
[2022-01-11] MEDS ORDERED: POTASSIUM CHLORIDE 20 MEQ TABLET.ER. PO ONE (11:00)
--- NOTE | 2022-01-11 11:17 | PDOC3 ---
[facility]-Discharge Summary Date of Admission: Date of Admission: Jan 08, 2022 Date of Discharge: Date of Discharge: Jan 11, 2022 Admission Diagnosis: Problems: (1) Alcohol intoxication (2) Lactic acidosis Procedures: Procedures: PAT team Hospital Course: Hospital Course: Chief Complaint Acute alcohol intoxication with delerium - initially not safe to discharge due to his level of intoxication. Sober now Alcohol use disorder - with history of withdrawal. He just recently relapsed and had 90 days sober. Will have psychiatric assessment team nurse liaison consultation to assist in getting back into rehabilitation. CIWA scale Headache - IV toradol Prn DM2 - sliding scale insulin HLD - statin HTN - cont home meds Smoker - offered nicotine patch. Counseled on cessation Hypokalemia - likely GI losses from alcohol abuse, dehydration Lactic acidosis - likely due to taking metformin with alcohol while not eating. Will monitor downward trend Transaminitis - likely alcohol related, will monitor FEN - regular diet PPX - ambulatory FULL CODE Dispo - inpatient History of Present Illness History of Present Illness Mr Funez is a 46 year old male w/ PMHx DM2, HLD, HTN, smoker, heavy ETOH use who presents after getting intoxicated at a hotel. He notes on 01/04/2022 he left [facility] because he and friends snuck beer in and purportedly was asked to leave. He then went to [facility] and has been on a "khan" and drank 6 pints of vodka and began hallucinating came to the ED for help. Patient is extremely agitated and states that he has been hallucinating and it trying to make himself vomit. He denies any fever, chest pain or abdominal pain. He does feel nauseated. Patient evaluated on 3 separate occasions was very intoxicated and hallucinating on the first 2. More alert on his third evaluation. He notes he had been in [place] [place] for 90 days and had actually gotten a plan of having a job when he notes a friend snuck in some beer and he relapsed. He notes he had COVID-19 in 2020 and has since had 2 mRNA vaccines and booster WBC 6, Hb 15.1, platelets 195, INR 1, PTT 29, NA 139, K2.9, BUN 11, CR 0.9, glucose 147, calcium 8.1, magnesium 1.9, bilirubin 1.2, AST 69, ALT 46, alk phos 76, albumin 3.7, lipase 148, lactic acid 7.6, high-sensitivity troponin is 10 9, ammonia is 50, CK is 445, urinalysis with ketonuria but bland otherwise, urine drug screen positive for ethyl alcohol and ethanol level 2245 was 361 rapid COVID-19 negative. Chest radiograph with perihilar opacities but with low lung volumes otherwise no acute abnormalities EKG sinus tachycardia rate 127 bpm normal axis QTC [address] segment elevations or depressions, no TWI Admitted for further care 01/09: Afebrile. K2.9. Having headache and some nausea today. Lactic acid trended downward. Still interested in alcohol rehab. Feeling weak overall. 01/10: K3.1, Phos 1.7. Glucose 218. Asking for regular diet. Nausea improved. Notes he does not feel safe to go home or to hotel because he knows he will start drinking again asking for alcohol rehab 01/11 Patient evaluate examined at bedside resting in bed. Discussed with PAT team provided resources. Appropriate for discharge today. Greater than 30 minutes spent on discharge. 19 minutes advance care planning Disposition: Disposition/Orders: D/C to Home Activity: Activity: Resume previous activity Diet: Diet: Regular Medications: Home Meds Reported Medications Metformin Hcl (METFORMIN HCL ER) 500 Mg Tab.er.24h, 500 MG PO DAILYWBKFT for ANTI-DIABETIC, TAB 0 Refills 05/30/15 Folic Acid (FOLIC ACID) 1 Mg Tablet, 1 MG PO DAILY, TAB 05/30/15 Glimepiride (GLIMEPIRIDE) 4 Mg Tablet, 4 MG PO DAILY, TAB 05/30/15 Citalopram Hydrobromide (CITALOPRAM HBR) 40 Mg Tablet, 40 MG PO DAILY, TAB 05/30/15 Simvastatin (SIMVASTATIN) 40 Mg Tablet, 40 MG PO DAILY for FOR CHOLESTEROL, #30 TAB 0 Refills 05/30/15 Lisinopril (LISINOPRIL) 5 Mg Tablet, 5 MG PO DAILY for FOR HYPERTENSION, #30 TAB 0 Refills 05/30/15 Trazodone Hcl (TRAZODONE HCL) 100 Mg Tablet, 100 MG PO HS, TAB 05/30/15 Discontinued Scripts Sulfamethoxazole/Trimethoprim (BACTRIM DS TABLET) 1 Each Tablet, 1 TAB PO BID, #14 TAB Prov:CRISSY MARTINEZ MD 07/15/16 Scheduled Citalopram Hydrobromide (Citalopram Hbr), 40 MG PO DAILY, (Reported) Folic Acid (Folic Acid), 1 MG PO DAILY, (Reported) Glimepiride (Glimepiride), 4 MG PO DAILY, (Reported) Lisinopril (Lisinopril), 5 MG PO DAILY, (Reported) Metformin Hcl (Metformin Hcl Er), 500 MG PO DAILYWBKFT, (Reported) Simvastatin (Simvastatin), 40 MG PO DAILY, (Reported) Trazodone Hcl (Trazodone Hcl), 100 MG PO HS, (Reported) Discontinued Medications Sulfamethoxazole/Trimethoprim (Bactrim Ds Tablet), 1 TAB PO BID Justicifation of Admission Dx: Justifications for Admission: Justification of Admission Dx: Yes (alcohol w/d) PRINCE ZAMBRANO MD Jan 11, 2022 11:17
--- NOTE | 2022-01-11 12:35 | NUR ---
SW following. Discussed with RNFeliciano (CORI) met with pt over the weekend. Pt provided with all resources and will reach out to [facility]. Discharge order for home with self care.
--- NOTE | 2022-01-11 13:29 | NUR ---
pt was dicharged home with self care. no scripts for pt. he was wheeled down to the main entrance to be picked up by friends. Hari Campo RN
== END 2022-01-11 13:20 | disposition home or self-care (01) | DRG 641 ==
LOC: ER 22:19 → 5 SOUTH 01-08 03:14
PROVIDERS: ADMIT Internal Medicine; ATTEND Internal Medicine
DX: E87.6 Hypokalemia (principal); E86.0 Dehydration; E11.9 Type 2 diabetes mellitus without complications; E78.00 Pure hypercholesterolemia, unspecified; E78.5 Hyperlipidemia, unspecified; F10.129 Alcohol abuse with intoxication, unspecified; F17.210 Nicotine dependence, cigarettes, uncomplicated; I10 Essential (primary) hypertension; Z20.822 Contact with and (suspected) exposure to COVID-19; Z82.49 Family history of ischemic heart disease and other diseases of the circulatory system; Z83.3 Family history of diabetes mellitus; Z86.16 Personal history of COVID-19; F41.9 Anxiety disorder, unspecified; R74.01 Elevation of levels of liver transaminase levels; Z88.8 Allergy status to other drugs, medicaments and biological substances
CPT/HCPCS: 36415; 71045; 80048; 80053; 80069; 80307; 81001; 82140; 82550; 82962; 83605; 83690; 83735; 84484; 85025; 85610; 85730; 87426; 93005; 96361; 96365; 96375; 96376; G0378; G0480; J1815; J1885; J2060; J2405; J3411; J3490; J7030; 99285-25